=== PATIENT | female | born 1975 | race African-American/Black ===

== ENCOUNTER 2017-02-24 07:50 | Inpatient (IN) | payer BC ==
[2017-02-24] MEDS: ELECTROLYTE-148 SOLN 1,000 ML IV SCH ×3 (08:40→23:00)
[2017-02-24 09:06] LABS: BASOPHIL 0.8 % (0-2.0); EOSINOPHIL 4.5 % (0-4.5); MCH 29.9 pg (25.7-33.7); MCHC 33.8 g/dl (32.0-36.0); MEAN CELL VOLUME 88.5 fl (80-96); MEAN PLT VOLUME 8.4 fl (7.5-11.1); NEUTROPHILS 64.8 % (42.8-82.8); PLATELET COUNT 199 K/MM3 (134-434); RDW 14.9 % (11.6-15.6); WHITE BLOOD COUNT 4.6 K/mm3 (4.0-10.0)
[2017-02-24 09:26] VITALS: BMI 38.4
[2017-02-24 09:26] LABS: INR 1.01 (0.82-1.09); PROTHROMBIN TIME (PATIENT) 11.4 SEC (9.98-11.88)
[2017-02-24 09:29] LABS: ACTIVATED PTT 27.5 SECONDS (26.9-34.4)
[2017-02-24 09:31] LABS: ANION GAP 10 (8-16); CALCIUM 7.8 mg/dL (8.5-10.1); CO2 23 mmol/L (21-32); CREATININE 0.6 mg/dL (0.55-1.02); GLUCOSE,RANDOM 137 mg/dL (74-106)
[2017-02-24] MEDS ORDERED: DINOPROSTONE 10 MG VAGINAL SUPPOSITORY VG ONE ×2 (09:43→21:18)
--- NOTE | 2017-02-24 09:49 | HP ---
Past Medical History - Admission Chief Complaint: Pt here for labor induction. History of Present Illness: 41 y/o with SIUP at 38 weeks here for IOL 2/2 uncontrolled A2 gestational DM. Pt monitored by MFM throughout the and despite oral hypoglycemic agents and insulin therapy has uncontrolled blood glucose levels. Pt also obese and AMA. 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 GBS negative, HIV negative. History Source: Patient, Medical Record Limitations to Obtaining History: No Limitations - Past Medical History Cardiovascular: No: HTN Pulmonary: No: Asthma Gastrointestinal: No: GERD Renal/: No: UTI Reproductive: Yes: Fibroids ...: 3 ...Para: 1 ...Term: 1 ...: 0 ...Spon : 0 ...Induced : 1 ...Multiple Gestation: 0 ...LMP: 06/03/16 ... Weeks Gestation by Dates: 38.0 ...EDC by Dates: 03/10/17 ...EDC by Sono: 03/10/17 Infectious Disease: Yes: Other (HSV 2) Psych: No: Anxiety, Bipolar, Depression Endocrine: Yes: Diabetes Mellitus (gestational) - Past Surgical History Hx Myomectomy: No Hx Transabdominal Cerclage: No Additional Surgical History: Breast reduction, kidney stone "removal" 2014 - Smoking History Smoking history: Never smoked Have you smoked in the past 12 months: No Aproximately how many cigarettes per day: 0 - Alcohol/Substance Use Hx Alcohol Use: No History of Substance Use: reports: None - Social History History of Recent Travel: No Home Medications - Allergies Allergies/Adverse Reactions: Allergies Allergy/AdvReac Type Severity Reaction Status Date / Time No Known Drug Allergies Allergy Verified 02/24/17 09:27 No Known Drug Intolerances Allergy Verified 08/09/15 20:39 - Home Medications Home Medications: Ambulatory Orders Vit/Iron Fumarate/FA [ Tablet] 1 tab PO DAILY 10/29/16 Humulin N 44 unit SQ BID 02/09/17 Humulin R U-500 Kwikpen 20 units SQ BID 02/09/17 Acyclovir [Zovirax -] 400 mg PO BID 02/24/17 Review of Systems - Review of Systems Constitutional: reports: No Symptoms Eyes: reports: No Symptoms HENT: reports: No Symptoms Neck: reports: No Symptoms Cardiovascular: reports: No Symptoms Respiratory: reports: No Symptoms Gastrointestinal: reports: No Symptoms Genitourinary: reports: No Symptoms Breasts: reports: No Symptoms Reported Musculoskeletal: reports: No Symptoms Integumentary: reports: No Symptoms Neurological: reports: No Symptoms Endocrine: reports: No Symptoms Hematology/Lymphatic: reports: No Symptoms Psychiatric: reports: No Symptoms Physical Exam - Maternity Vital Signs: Vital Signs Temperature 98.7 F 02/24/17 09:15 Pulse Rate 106 H 02/24/17 09:15 Respiratory Rate 20 02/24/17 09:15 Blood Pressure 124/85 02/24/17 09:15 O2 Sat by Pulse Oximetry (%) Constitutional: Yes: Well Nourished, No Distress, Calm Eyes: Yes: Conjunctiva Clear, EOM Intact HENT: Yes: Atraumatic, Normocephalic Neck: Yes: Supple, Trachea Midline Cardiovascular: Yes: Regular Rate and Rhythm Lungs: Clear to auscultation - Abdominal Exam/OB Number of Fetuses: Single Presentation: Vertex Contractions: No Heart Rate (range): 150 Category: I Accelerations: Uniform Decelerations: None (one variable deceleration noted earlier *approx 830 am - spontaneously resolved, none since) - Vaginal Exam/OB Dilatation (cm): 1 Effacement (%): 50 Amniotic Membrane Status: Intact Presentation: Vertex/Position Station: -3 - Physical Exam Psychiatric: Yes: Alert, Oriented - Labs Lab Results: CBC, BMP 02/24/17 08:35 02/24/17 08:35 Hemorrhage Risk Assessment - Risk Factors Medium Risk Factors: Yes: None High Risk Factors: Yes: None Risk Score: 1 Risk Level: Medium Risk Problem List - Problems (1) White classification A2 gestational diabetes mellitus (GDM), insulin controlled Code(s): O24.414 - GESTATIONAL DIABETES IN , INSULIN CONTROLLED (2) Elderly multigravida, currently in third trimester Code(s): O09.523 - SUPERVISION OF ELDERLY MULTIGRAVIDA, THIRD TRIMESTER Assessment/Plan 41 y/o with SIUP at 38 weeks, IOL for uncontrolled GDMA2 - insulin dependent - FHTS cat 1 - IOL, for cervidil placement at this time - A2GDM - will monitor Blood Glucose every 4 hours while not in active labor and control with insulin as needed, will check BG every 1-2 hours while in labor and control with insulin/Dextrose as needed. - GBS negative
[2017-02-24] MEDS ORDERED: PROMETHAZINE HCL 25 MG/1 ML VIAL IVPUSH ONE (11:30)
[2017-02-24] MEDS ORDERED: BUTORPHANOL TARTRATE 1 MG/ML VIAL IVPB ONE (11:30)
[2017-02-24] MEDS ORDERED: TUBERCULIN PPD 5 TU/0.1ML SYRINGE (IN PATIENT USE ONLY) ID ONE (12:00)
--- NOTE | 2017-02-24 21:17 | PN ---
Ante-Partal Exam - Subjective Subjective: Pt with occasional contractions (Q12-14 mins) but states pain is worsening. Vital Signs: Vital Signs Temperature 97.7 F 02/24/17 18:00 Pulse Rate 88 02/24/17 20:00 Respiratory Rate 20 02/24/17 20:00 Blood Pressure 126/73 02/24/17 20:00 O2 Sat by Pulse Oximetry (%) Bleeding: No Headache: No Visual changes: No Right upper quadrant pain: No - Contractions Contractions: Yes Regularity: Irregular Intensity: Mild/Mod Monitor Mode: External - Exam during Labor Heart Rate: 150 Variability: Moderate Category: I Monitor Accelerations: Present Monitor Decelerations: None Exam: Vaginal Dilatation (cm): 1 Effacement (%): 50 Presentation: Vertex Station: -4 - Intrapartum Hemorrhage Risk Medium Risk Factors: None High Risk Factors: None Risk Score: 0 Risk Level: Low Risk - Assessment/Plan Assessment/Plan: 41 y/o P1 with SIUP at 38 weeks, IOL for uncontrolled GDMA2 - AFVSS - FHTS cat 1 - IOL, cervidil removed, cervix not ripe, for 2nd cervidil placement in 30 minutes - A2GDM - continue BGMs every 4 hours until active labor then will increase frequency - continue current care
[2017-02-25] MEDS: ELECTROLYTE-148 SOLN 1,000 ML IV SCH ×3 (06:00→18:30)
[2017-02-25] MEDS ORDERED: OXYTOCIN 15 UNITS/ LR 250 ML 250 ML IVPB SCH (09:00)
--- NOTE | 2017-02-25 09:17 | PN ---
Ante-Partal Exam - Subjective Subjective: Pt with some discomfort with contractions overnight, received stadol/phenergan X 1 dose. Cervidil removed this a.m. Vital Signs: Vital Signs Temperature 98.1 F 02/25/17 08:00 Pulse Rate 85 02/25/17 08:00 Respiratory Rate 18 02/25/17 08:00 Blood Pressure 106/70 02/25/17 08:00 O2 Sat by Pulse Oximetry (%) Bleeding: No Headache: No Visual changes: No Right upper quadrant pain: No - Contractions Contractions: Yes Regularity: Irregular Intensity: Mild/Mod Monitor Mode: External - Exam during Labor Heart Rate: 150 Variability: Moderate Category: I Monitor Accelerations: Present Monitor Decelerations: None Exam: Vaginal Dilatation (cm): 2 Effacement (%): 50 Amniotic Membrane Status: Intact Presentation: Vertex Station: -3 (exam per nursing staff) - Assessment/Plan Assessment/Plan: cervidil removed to start pitocin continue BG monitoring as ordered until active labor, then may increase monitoring once in active labor
--- NOTE | 2017-02-25 18:30 | PN ---
Ante-Partal Exam - Subjective Subjective: pt doing well on Pitocin Vital Signs: Vital Signs Temperature 98.2 F 02/25/17 18:00 Pulse Rate 80 02/25/17 18:00 Respiratory Rate 18 02/25/17 18:00 Blood Pressure 122/75 02/25/17 18:00 O2 Sat by Pulse Oximetry (%) Bleeding: No Headache: No Visual changes: No Right upper quadrant pain: No - Contractions Contractions: Yes Regularity: Regular - Exam during Labor Heart Rate: 145 Category: I Monitor Accelerations: Present Monitor Decelerations: None Exam: Vaginal Dilatation (cm): 2 Effacement (%): 50 Amniotic Membrane Status: Intact Meconium Staining: Light - Intrapartum Hemorrhage Risk Risk Score: 0 Risk Level: Low Risk - Assessment/Plan Assessment/Plan: gestational Diabetes on iup at 38 week Induction fibroids obesity AMA hx cervidil x 2 Cat 1 No progress Plan Continue pitocin willl do CS in am if no progress Sparkle
--- NOTE | 2017-02-25 22:06 | PN ---
Ante-Partal Exam - Subjective Subjective: Pt desires to stop Pitoicin Pt with no progress after 2 days Vital Signs: Vital Signs Temperature 98.2 F 02/25/17 18:00 Pulse Rate 89 02/25/17 20:00 Respiratory Rate 18 02/25/17 20:00 Blood Pressure 132/70 02/25/17 20:00 O2 Sat by Pulse Oximetry (%) Bleeding: No Headache: No Visual changes: No Right upper quadrant pain: No - Contractions Contractions: Yes Regularity: Regular Intensity: Mild/Mod Monitor Mode: External - Exam during Labor Heart Rate: 145 Variability: Moderate Category: I Monitor Accelerations: Present Monitor Decelerations: None Exam: Vaginal Dilatation (cm): 2 Effacement (%): 50 Amniotic Membrane Status: Intact Presentation: Vertex Station: -2 - Intrapartum Hemorrhage Risk Risk Score: 0 Risk Level: Low Risk - Assessment/Plan Assessment/Plan: Failure to progress Refusal to contnue pitocin desires CS in AM Pt ate will do CS at 5 am gestational diabetes on insulin at 38 week Echogenic focus of heart AMA Fibroids Obesity Plan Primary CS after 6 hours eating Notify Gennaro & anesthesia Villagran
[2017-02-25] MEDS ORDERED: CITRIC ACID/SODIUM CITRATE 30 ML UNIT-DOSE CUP PO ONE (22:10)
[2017-02-26] MEDS ORDERED: ELECTROLYTE-148 SOLN 1,000 ML IV ONE (04:00)
[2017-02-26] MEDS ORDERED: ONDANSETRON 4 MG/2 ML VIAL IVPUSH PRN (05:47)
[2017-02-26 06:18] LABS: VENOUS BLOOD GAS HCO3 22.2 meq/L (19-25)
[2017-02-26 06:19] LABS: VENOUS PH 7.29 (7.32-7.42)
[2017-02-26] MEDS ORDERED: METHYLERGONOVINE MALEATE 0.2 MG/1 ML AMP IM PRN (06:40)
[2017-02-26] MEDS ORDERED: IBUPROFEN 600 MG TABLET (FP) PO PRN (06:40)
--- NOTE | 2017-02-26 06:44 | OP ---
Operative Note - Note: Operative Date: 02/26/17 Pre-Operative Diagnosis: Failure to Progress. obesity. 38 week. gestational Dm on insulin Operation: Primary Section. Bilateral salpingectomy Findings: Live female infant Nuchal caord x 1 Post-Operative Diagnosis: Same as Pre-op Surgeon: Vivi Marti Operating Room Rn: Alf Mena Anesthesia: Spinal Estimated Blood Loss (mls): 600 Operative Report Dictated: Yes
[2017-02-26] MEDS ORDERED: OXYTOCIN 20 UNITS in 0.9% NS 1,000 ML IV SCH (06:45)
--- NOTE | 2017-02-26 07:06 | OP ---
DATE OF OPERATION: 02/26/2017 PREOPERATIVE DIAGNOSIS: 1. Failure to progress, gestational diabetes on insuling, 38 weeks. 2. Voluntary sterilization. 3. Obesity 4. AMA POSTOPERATIVE DIAGNOSIS: Live female . Normal tubes and ovaries. Nuchal cord x1. OPERATION: Primary section and bilateral salpingectomy. SURGEON: Vivi Marti MD JAVA SQL DEVELOPER: DAINA Acevedo ( unavailable) ANESTHESIA: Spinal. ANESTHESIOLOGIST: Rico Elkins M.D. DESCRIPTION OF PROCEDURE: The patient was taken to the operating room, placed in the supine position, prepped and draped in the usual sterile fashion. A scalpel was then used to make a Pfannenstiel skin incision. Cautery was then used to go through the layers of the abdominal wall to the level of the fascia. The fascia was cut in the midline and cautery was then used to open the fascia in a smiling fashion. Conrad was then used to bluntly and sharply dissect the rectus muscle and fascia. The muscle was splint in the midline. The peritoneal cavity was then entered and carried upward and downward. A bladder retractor was then placed. The vesicouterine reflection was then entered. The bladder was bluntly dissected out of the operative field. A scalpel was then used to make a low transverse uterine incision. The incision was carried upward using bandage scissors. A live female was delivered in OT position. Nuchal cord x1 was reduced. The shoulders were delivered without difficulty. The cord was clamped and cut. The infant was handed to the multicultural services librarian. The placenta was manually extracted from the uterus. The uterus was exteriorized and cleaned with clean lap pads. The uterine incision was then closed using 0 Biosyn suture, the first layer continuous interlocking and the second layer imbricating the first layer. The tubes were noted to be normal. LigaSure was then used to do bilateral salpingectomy using cautery and cutting. The tubes were submitted to Pathology. The uterus was interiorized. The abdominal cavity was cleaned with lap pads. The tubes were checked for hemostasis. The peritoneum was closed using 0 Biosyn suture. The fascia was then closed using 0 Vicryl suture in 2 parts, continuous. The subcutaneous was closed using 0 Biosyn suture and tthe skin was then closed using 3-0 Vicryl. Hemostasis was achieved. The patient tolerated the procedure well. Estimated blood loss was 600 mL. Micky [id number] MTDD
[2017-02-26] MEDS ORDERED: IBUPROFEN 800 MG/8 ML IJ IVPB ONE ×2 (09:45→10:15)
[2017-02-26] MEDS: PRENATAL VITAMINS W/ FOLIC ACID TABLET (FP) PO SCH (10:00)
[2017-02-26] MEDS: ELECTROLYTE-148 SOLN 1,000 ML IV SCH (15:29)
[2017-02-26] MEDS: oxyCODONE HCL 5 MG TABLET PO PRN (22:41)
[2017-02-26] MEDS: SIMETHICONE 80 MG TAB.CHEW (FP) PO PRN (22:41)
[2017-02-26] MEDS: ACETAMINOPHEN 325 MG TABLET (FP) PO PRN (22:42)
[2017-02-26] MEDS: IBUPROFEN 600 MG TABLET (FP) PO PRN (22:44)
[2017-02-27] MEDS: oxyCODONE HCL 5 MG TABLET PO PRN ×3 (05:48→20:44)
[2017-02-27] MEDS: SIMETHICONE 80 MG TAB.CHEW (FP) PO PRN ×3 (05:48→20:43)
[2017-02-27] MEDS: IBUPROFEN 600 MG TABLET (FP) PO PRN ×2 (05:49→12:44)
[2017-02-27] MEDS: ACETAMINOPHEN 325 MG TABLET (FP) PO PRN ×2 (05:49→20:43)
[2017-02-27] MEDS ORDERED: BISACODYL 10 MG SUPP.RECT RC PRN (06:40)
[2017-02-27 07:46] LABS: BASOPHIL 0.7 % (0-2.0); EOSINOPHIL 3.4 % (0-4.5); MCH 31.1 pg (25.7-33.7); MCHC 34.9 g/dl (32.0-36.0); MEAN PLT VOLUME 8.7 fl (7.5-11.1); PLATELET COUNT 200 K/MM3 (134-434); RDW 14.9 % (11.6-15.6); WHITE BLOOD COUNT 8.6 K/mm3 (4.0-10.0)
--- NOTE | 2017-02-27 08:34 | PN ---
Post Progress Note - Subjective Subjective: POD 1 Pt complaining of gas pain, medication given with good results Type of Delivery: Primary C/S Vital Signs: Vital Signs Temperature 98.1 F 02/27/17 05:58 Pulse Rate 86 02/27/17 05:58 Respiratory Rate 18 02/27/17 06:00 Blood Pressure 113/68 02/27/17 05:58 O2 Sat by Pulse Oximetry (%) 99 02/26/17 08:55 Breast Exam: Yes: Soft Uterus: Yes: Fundus Firm Incision: Yes: Dressing dry and intact Abdomen/GI: Yes: Abdomen soft Lochia: Yes: Rubra Lochia, amount: Moderate Extremities: Yes: Calves non-tender Perineum: Yes: Intact Activity: Ambulating - Labs Labs: CBC WBC 8.6 K/mm3 (4.0-10.0) D 02/27/17 07:13 RBC 3.89 M/mm3 (3.60-5.2) 02/27/17 07:13 Hgb 12.1 GM/dL (10.7-15.3) 02/27/17 07:13 Hct 34.6 % (32.4-45.2) 02/27/17 07:13 MCV 89.0 fl (80-96) 02/27/17 07:13 MCH 31.1 pg (25.7-33.7) 02/27/17 07:13 MCHC 34.9 g/dl (32.0-36.0) 02/27/17 07:13 RDW 14.9 % (11.6-15.6) 02/27/17 07:13 Plt Count 200 K/MM3 (134-434) 02/27/17 07:13 MPV 8.7 fl (7.5-11.1) 02/27/17 07:13 Neutrophils % 71.0 % (42.8-82.8) 02/27/17 07:13 Lymphocytes % 16.4 % (8-40) D 02/27/17 07:13 Monocytes % 8.5 % (3.8-10.2) 02/27/17 07:13 Eosinophils % 3.4 % (0-4.5) 02/27/17 07:13 Basophils % 0.7 % (0-2.0) 02/27/17 07:13
[2017-02-27] MEDS: PRENATAL VITAMINS W/ FOLIC ACID TABLET (FP) PO SCH (09:00)
[2017-02-27] MEDS ORDERED: FLU VACC QS2017-18 36MOS UP/PF 60 MCG/0.5 ML SYRINGE IM ONE (10:00)
--- NOTE | 2017-02-27 11:47 | PROC ---
Procedure Note Procedure: Anesthesia post op note POD#1. S/P primary under spinal with duramorph. Pat seen and examined. VSS. No apparent post anesthesia complications. Signed off.
[2017-02-28] MEDS: SIMETHICONE 80 MG TAB.CHEW (FP) PO PRN ×4 (08:00→20:50)
[2017-02-28] MEDS: oxyCODONE HCL 5 MG TABLET PO PRN ×4 (08:01→20:51)
[2017-02-28] MEDS: ACETAMINOPHEN 325 MG TABLET (FP) PO PRN ×4 (08:04→20:50)
[2017-02-28] MEDS: PRENATAL VITAMINS W/ FOLIC ACID TABLET (FP) PO SCH (10:13)
--- NOTE | 2017-02-28 11:21 | PN ---
Progress Note (SOAP) - Subjective Chief Complaint: Pt doing well - Current Medications Current Medications: Active Medications Acetaminophen (Tylenol -) 650 mg PO Q4H PRN PRN Reason: FEVER OR PAIN Last Admin: 02/28/17 08:04 Dose: 650 mg Bisacodyl (Dulcolax Suppository -) 10 mg RC PRN PRN PRN Reason: CONSTIPATION Diphenhydramine HCl (Benadryl Injection -) 25 mg IVPUSH Q4H PRN PRN Reason: Pruritis Ibuprofen (Motrin -) 600 mg PO Q4H PRN PRN Reason: PAIN Last Admin: 02/27/17 12:44 Dose: 600 mg Methylergonovine Maleate (Methergine Injection -) 0.2 mg IM Q4H PRN PRN Reason: Excessive Bleeding (L&D) Oxycodone HCl (Roxicodone -) 5 mg PO Q4H PRN PRN Reason: PAIN LEVEL 1-5 Last Admin: 02/27/17 05:48 Dose: 5 mg Oxycodone HCl (Roxicodone -) 10 mg PO Q4H PRN PRN Reason: PAIN LEVEL 6-10 Last Admin: 02/28/17 08:01 Dose: 10 mg Multivit/Folic Acid/Iron ( Vitamins (Sjr) -) 1 tab PO DAILY LUCIANA Last Admin: 02/28/17 10:13 Dose: 1 tab Simethicone (Mylicon -) 80 mg PO Q4H PRN PRN Reason: GAS Last Admin: 02/28/17 08:00 Dose: 80 mg - Objective Vital Signs: Vital Signs Temperature 99.0 F 02/27/17 20:56 Pulse Rate 105 H 02/27/17 20:56 Respiratory Rate 20 02/27/17 20:56 Blood Pressure 124/82 02/27/17 20:56 O2 Sat by Pulse Oximetry (%) 99 02/26/17 08:55 Constitutional: Yes: Well Nourished, No Distress Cardiovascular: Yes: WNL Respiratory: Yes: WNL Breast(s): Yes: WNL Musculoskeletal: Yes: WNL Extremities: Yes: WNL Wound/Incision: Yes: Clean/Dry, Well Approximated, Steri Strips, Open to air Neurological: Yes: WNL, Alert, Oriented Labs Lab Results: CBC, BMP 02/27/17 07:13 02/24/17 08:35 Assessment/Plan SP CS POD2 stable plan continue present management
[2017-03-01] MEDS: ACETAMINOPHEN 325 MG TABLET (FP) PO PRN ×2 (05:42→22:21)
[2017-03-01] MEDS: SIMETHICONE 80 MG TAB.CHEW (FP) PO PRN ×2 (05:42→22:21)
[2017-03-01] MEDS: oxyCODONE HCL 5 MG TABLET PO PRN ×2 (05:43→22:21)
[2017-03-01 06:53] LABS: BASOPHIL 0.5 % (0-2.0); EOSINOPHIL 4.7 % (0-4.5); MCH 30.8 pg (25.7-33.7); MCHC 34.4 g/dl (32.0-36.0); MEAN CELL VOLUME 89.7 fl (80-96); MEAN PLT VOLUME 8.4 fl (7.5-11.1); NEUTROPHILS 69.2 % (42.8-82.8); PLATELET COUNT 213 K/MM3 (134-434); RDW 14.9 % (11.6-15.6); WHITE BLOOD COUNT 6.4 K/mm3 (4.0-10.0)
[2017-03-01] MEDS: PRENATAL VITAMINS W/ FOLIC ACID TABLET (FP) PO SCH (09:38)
--- NOTE | 2017-03-01 11:26 | PN ---
Progress Note (SOAP) - Subjective Chief Complaint: Pt doing well - Current Medications Current Medications: Active Medications Acetaminophen (Tylenol -) 650 mg PO Q4H PRN PRN Reason: FEVER OR PAIN Last Admin: 03/01/17 05:42 Dose: 650 mg Bisacodyl (Dulcolax Suppository -) 10 mg RC PRN PRN PRN Reason: CONSTIPATION Diphenhydramine HCl (Benadryl Injection -) 25 mg IVPUSH Q4H PRN PRN Reason: Pruritis Ibuprofen (Motrin -) 600 mg PO Q4H PRN PRN Reason: PAIN Last Admin: 02/27/17 12:44 Dose: 600 mg Methylergonovine Maleate (Methergine Injection -) 0.2 mg IM Q4H PRN PRN Reason: Excessive Bleeding (L&D) Oxycodone HCl (Roxicodone -) 5 mg PO Q4H PRN PRN Reason: PAIN LEVEL 1-5 Last Admin: 02/27/17 05:48 Dose: 5 mg Oxycodone HCl (Roxicodone -) 10 mg PO Q4H PRN PRN Reason: PAIN LEVEL 6-10 Last Admin: 03/01/17 05:43 Dose: 10 mg Multivit/Folic Acid/Iron ( Vitamins (Sjr) -) 1 tab PO DAILY LUCIANA Last Admin: 03/01/17 09:38 Dose: 1 tab Simethicone (Mylicon -) 80 mg PO Q4H PRN PRN Reason: GAS Last Admin: 03/01/17 05:42 Dose: 80 mg - Objective Vital Signs: Vital Signs Temperature 98.2 F 03/01/17 09:19 Pulse Rate 95 H 03/01/17 09:19 Respiratory Rate 20 03/01/17 09:19 Blood Pressure 138/66 03/01/17 09:19 O2 Sat by Pulse Oximetry (%) 99 02/26/17 08:55 Constitutional: Yes: Well Nourished, No Distress Neck: Yes: WNL Cardiovascular: Yes: WNL Respiratory: Yes: WNL ....Post : Yes: Uterus firm, Uterus non-tender Breast(s): Yes: WNL Musculoskeletal: Yes: WNL Extremities: Yes: WNL Edema: No Wound/Incision: Yes: Clean/Dry, Well Approximated, Steri Strips, Open to air Neurological: Yes: WNL, Alert, Oriented Labs Lab Results: CBC, BMP 03/01/17 06:20 02/24/17 08:35 Problem List - Problems (1) delivery delivered Code(s): O82 - ENCOUNTER FOR DELIVERY WITHOUT INDICATION Assessment/Plan SP CS POD3 stable plan continue present management DC home
--- NOTE | 2017-03-01 18:47 | PATH ---
Surgical Pathology Report Patient Name: JAVIER DELGADO [facility]. Rec. 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 Specimen(s) Received A: PLACENTA B: PORTION OF RIGHT FALLOPIAN TUBE C: PORTION OF LEFT FALLOPIAN TUBE Clinical History 38.2 weeks' gestation. IDDM. History of kidney stones, breast reduction, fibroids, hyperthyroidism, obesity Final Diagnosis A. PLACENTA, SECTION: 463 g THIRD TRIMESTER PLACENTA WITH TRIVASCULAR UMBILICAL CORD AND UNREMARKABLE PLACENTAL MEMBRANES. B. FALLOPIAN TUBE, RIGHT, SALPINGECTOMY: FALLOPIAN TUBE (INCLUDING FULL LUMINAL PORTION) WITH MILD HYDROSALPINX AND PARATUBAL CYST. C. FALLOPIAN TUBE, SALPINGECTOMY: FALLOPIAN TUBE (INCLUDING FULL LUMINAL PORTION) WITH MILD HYDROSALPINX. Electronically Signed Destinee Colmenares M.D. Gross Description A. The specimen is received fresh labeled placenta and is a 463 gram, 17 x 16 x 2.2 cm. placenta with attached membranes and umbilical cord. The attached membranes are glistening and translucent and insert marginally. The umbilical cord measures 36 cm. in length and averages 0.6 cm. in diameter. The cord inserts eccentrically, 5 cm. to the nearest margin. No true knots or strictures are identified. Cut surface of the umbilical cord reveals 3 vessels. The surface is glynn-blue with minimal fibrin deposition and appropriate caliber vessels. The maternal surface is lobulated and appears complete with no adherent blood clots or areas of thinning. Sectioning reveals red-brown, spongy parenchyma. No lesions are identified. Congressional Representative sections are submitted in three cassettes as follows: 1- membrane rolls and umbilical cord; 2-3- full thickness sections of placenta. B. Received fresh labelled "right fallopian tube" is a 9.3 cm long by 0.5 cm in diameter portion of tissue consistent with a portion of fallopian tube. The fimbriated end is present, and there is a 1.0 cm in greatest dimension clear fluid filled cysts and the fimbriated end. No additional focal lesions are identified. Congressional Representative sections are submitted in one cassette. C. Received fresh labelled "left fallopian tube" is a 9.3 cm long by 0.5 cm in diameter portion of tissue consistent with a portion of fallopian tube. The fimbriated end is present. No focal lesions are identified. Congressional Representative sections are submitted in one cassette. [facility]/02/26/2017 [facility]/02/26/2017
[2017-03-02] MEDS: SIMETHICONE 80 MG TAB.CHEW (FP) PO PRN (06:26)
[2017-03-02] MEDS: oxyCODONE HCL 5 MG TABLET PO PRN (06:26)
[2017-03-02] MEDS: ACETAMINOPHEN 325 MG TABLET (FP) PO PRN (06:26)
[2017-03-02 08:21] VITALS: BP 132/69; PULSE 100; TEMP 99
[2017-03-02] MEDS: PRENATAL VITAMINS W/ FOLIC ACID TABLET (FP) PO SCH (09:29)
== END 2017-03-02 12:00 | disposition home or self-care (01) | DRG 766 ==
LOC: JLDR 07:50 → J3W 02-26 09:10
PROVIDERS: ADMIT Obstetrics & Gynecology; ATTEND Obstetrics & Gynecology
PROC: 10D00Z1 Extraction of Products of Conception, Low, Open Approach (ICD-10-PCS; principal; 2017-02-24)
PROC: 0UT70ZZ Resection of Bilateral Fallopian Tubes, Open Approach (ICD-10-PCS; 2017-02-24)
PROC: 3E0P7VZ Introduction of Hormone into Female Reproductive, Via Natural or Artificial Opening (ICD-10-PCS; 2017-02-24)
DX: O24.424 Gestational diabetes mellitus in childbirth, insulin controlled (principal); O99.214 Obesity complicating childbirth; E66.8 Other obesity; Z68.38 Body mass index [BMI] 38.0-38.9, adult; O34.13 Maternal care for benign tumor of corpus uteri, third trimester; O69.81X0 Labor and delivery complicated by cord around neck, without compression, not applicable or unspecified; O62.0 Primary inadequate contractions; Z3A.38 38 weeks gestation of pregnancy; Z37.0 Single live birth; Z30.2 Encounter for sterilization
CPT/HCPCS: 36415; 80048; 82803; 85025; 85610; 85730; 86593; 86850; 86900; 86901; 88302-TC; 88307-TC

== ENCOUNTER 2020-05-04 06:32 | Emergency (ER) | payer BC ==
[2020-05-04 07:27] VITALS: TEMP 98.2; BMI 32.4
[2020-05-04] MEDS ORDERED: ACETAMINOPHEN 1000 MG/100 ML BAG IVPB ONE (08:44)
[2020-05-04] MEDS ORDERED: FAMOTIDINE 20 MG/50 ML IVPB 20 MG/50 ML MG IVPB ONE ×2 (08:44→08:56)
[2020-05-04] MEDS ORDERED: MAG HYDROX/AL HYDROX/SIMETH -MYLANTA- ORAL SUSPENSION PO ONE (08:44)
[2020-05-04 08:46] LABS: BASO % 0.7 % (0-2.0); EOS % 5.8 % (0-4.5); HEMATOCRIT 41.9 % (32.4-45.2); HEMOGLOBIN 14.4 GM/dL (10.7-15.3); LYMPH % 31.5 % (8-40); MCH 30.7 pg (25.7-33.7); MCHC 34.3 g/dl (32.0-36.0); MEAN CELL VOLUME 89.5 fl (80-96); MEAN PLT VOLUME 8.3 fl (7.5-11.1); MONO % 7.7 % (3.8-10.2); NEUT % 54.3 % (42.8-82.8); PLATELET COUNT 256 K/MM3 (134-434); RBC 4.69 M/mm3 (3.60-5.2); RDW 12.7 % (11.6-15.6); WHITE BLOOD COUNT 4.5 K/mm3 (4.0-10.0)
[2020-05-04] MEDS ORDERED: SUCRALFATE 1 GM TABLET (FP) ONE (08:56)
[2020-05-04] MEDS ORDERED: ACETAMINOPHEN INJECTION 100 ML IVPB ONE (08:56)
[2020-05-04] MEDS ORDERED: MAG HYDROX/AL HYDROX/SIMETH 30 ML UNIT-DOSE CUP ONE (08:56)
[2020-05-04 09:05] LABS: CHLORIDE 109 mmol/L (98-107); SODIUM 142 mmol/L (136-145)
[2020-05-04 09:09] LABS: ANION GAP 6 MMOL/L (8-16); BLOOD UREA NITROGEN 11.3 mg/dL (7-18); CALCIUM 8.9 mg/dL (8.5-10.1); CO2 27 mmol/L (21-32); GLUCOSE,RANDOM 102 mg/dL (74-106); LIPASE 70 U/L (73-393)
[2020-05-04 09:10] LABS: SGPT/ALT 7 U/L (13-61)
[2020-05-04 09:11] LABS: CREATININE 0.9 mg/dL (0.55-1.3); SGOT/AST 10 U/L (15-37)
[2020-05-04 09:12] LABS: BILIRUBIN,TOTAL 0.6 mg/dL (0.2-1); TOT PROT 7.6 g/dl (6.4-8.2)
[2020-05-04 09:13] LABS: ALK PHOS 60 U/L (45-117)
[2020-05-04] MEDS ORDERED: SUCRALFATE 1 GM/10 ML UNIT DOSE CUPS PO SCH (10:00)
[2020-05-04 10:43] LABS: PH,URINE 5.5 (5.0-8.0); URINE APPEARANCE CLEAR; URINE BILIRUBIN NEGATIVE (NEGATIVE); URINE COLOR YELLOW; URINE GLUCOSE (UA) NEGATIVE (NEGATIVE); URINE KETONE TRACE (NEGATIVE); URINE LEUK ESTERASE NEGATIVE (NEGATIVE); URINE NITRITE NEGATIVE (NEGATIVE); URINE PROTEIN NEGATIVE (NEGATIVE); URINE UROBILINOGEN 0.2 mg/dL (0.2-1.0)
[2020-05-04 10:46] LABS: HCG,QUALITATIVE URINE Negative
[2020-05-04 11:41] VITALS: BP 122/78; PULSE 72
== END 2020-05-04 11:41 | disposition home or self-care (01) ==
LOC: JER 06:32
PROC: 3E033NZ Introduction of Analgesics, Hypnotics, Sedatives into Peripheral Vein, Percutaneous Approach (ICD-10-PCS; principal; 2020-05-04)
PROC: 3E033GC Introduction of Other Therapeutic Substance into Peripheral Vein, Percutaneous Approach (ICD-10-PCS; 2020-05-04)
DX: K80.51 Calculus of bile duct without cholangitis or cholecystitis with obstruction (principal)
CPT/HCPCS: 36415; 71046-TC-FY; 76705-TC; 80053; 81003; 82550; 83690; 84484; 84703; 85025; 93005; 93010; 99285-25; J0131

== ENCOUNTER 2020-05-10 04:52 | Day surgery (SDC) | payer BC ==
[2020-05-08 16:36] VITALS: BMI 32.8
[2020-05-10] MEDS ORDERED: fentaNYL CITRATE 250 MCG/5 ML VIAL ONE (10:20)
[2020-05-10] MEDS ORDERED: SUCCINYLCHOLINE CHLORIDE 200 MG/10 ML SYRINGE ONE (10:20)
[2020-05-10] MEDS ORDERED: MIDAZOLAM HCL 2 MG/2 ML SINGLE DOSE VIAL ONE (10:20)
[2020-05-10] MEDS ORDERED: ROCURONIUM BROMIDE 50 MG/5 ML SYRINGE ONE (10:20)
[2020-05-10] MEDS ORDERED: PROPOFOL 20 ML ONE (10:20)
[2020-05-10] MEDS ORDERED: ceFAZolin SODIUM 1 GM VIAL ONE (10:21)
[2020-05-10] MEDS ORDERED: KETOROLAC TROMETHAMINE 30 MG/1 ML VIAL ONE (10:21)
[2020-05-10] MEDS ORDERED: LIDOCAINE HCL/PF 2% SDV 5ML VIAL ONE (10:21)
[2020-05-10] MEDS ORDERED: DEXAMETHASONE SOD PHOSPHATE 4 MG/1 ML VIAL ONE (10:21)
[2020-05-10] MEDS ORDERED: DESFLURANE GAS 240 ML BOTTLE IH ONE (10:23)
[2020-05-10] MEDS ORDERED: ceFAZolin 2 GRAM PREMIX BAG IVPB ONE (11:50)
[2020-05-10] MEDS ORDERED: ONDANSETRON 4 MG/2 ML VIAL IVPUSH PRN (14:43)
[2020-05-10] MEDS ORDERED: oxyCODONE HCL 5 MG TABLET PO PRN (14:43)
[2020-05-10] MEDS ORDERED: LACTATED RINGERS SOLUTION 1,000 ML IV SCH (14:45)
[2020-05-10] MEDS ORDERED: ONDANSETRON 4 MG/2 ML VIAL ONE (16:42)
[2020-05-10] MEDS ORDERED: oxyCODONE HCL 5 MG TABLET ONE (17:41)
[2020-05-10 18:08] VITALS: BP 116/72; PULSE 72; TEMP 97.5
== END 2020-05-10 18:24 | disposition home or self-care (01) ==
LOC: JASU-SURG 04:52
PROVIDERS: ATTEND Surgery
PROC: 0FT44ZZ Resection of Gallbladder, Percutaneous Endoscopic Approach (ICD-10-PCS; principal; 2020-05-10 12:00)
DX: K80.10 Calculus of gallbladder with chronic cholecystitis without obstruction (principal)
CPT/HCPCS: 82962; 84703; 88304-TC; 94760

== ENCOUNTER 2021-08-25 04:03 | Emergency (ER) | payer BC ==
[2021-08-25 04:30] VITALS: BMI 32.5
[2021-08-25] MEDS ORDERED: IBUPROFEN 600 MG TABLET (FP) PO ONE ×2 (04:36→04:42)
[2021-08-25] MEDS ORDERED: SODIUM CHLORIDE 0.9% 500 ML INFUS.BAG IV ONE (04:39)
[2021-08-25 05:27] LABS: BASO % 0.5 % (0-2.0); EOS % 1.6 % (0-4.5); HEMATOCRIT 40.9 % (32.4-45.2); LYMPH % 9.9 % (8-40); MCH 30.4 pg (25.7-33.7); MCHC 34.2 g/dl (32.0-36.0); MEAN PLT VOLUME 8.3 fl (7.5-11.1); PLATELET COUNT 234 10^3/uL (134-434); RBC 4.59 M/mm3 (3.60-5.2); WHITE BLOOD COUNT 7.4 K/mm3 (4.0-10.0)
[2021-08-25 05:34] LABS: EPI CELLS 27 /uL (0-25.1); HCG,QUALITATIVE URINE Negative; HYALINE CASTS 1 /uL (0-3.1); PH,URINE 8.5 (5.0-8.0); URINE APPEARANCE CLEAR; URINE BACTERIA 5075 /uL (0-1359); URINE BILIRUBIN NEGATIVE (NEGATIVE); URINE COLOR YELLOW; URINE GLUCOSE (UA) NEGATIVE (NEGATIVE); URINE KETONE NEGATIVE (NEGATIVE); URINE LEUK ESTERASE 1+ (NEGATIVE); URINE NITRITE NEGATIVE (NEGATIVE); URINE PROTEIN NEGATIVE (NEGATIVE); URINE RBC 15 /uL (0-23.9); URINE WBC 192 /uL (0-25.8)
[2021-08-25] MEDS ORDERED: CEFTRIAXONE 1 GM in DEXTROSE 5%-WATER - 50 ML IVPB ONE (06:11)
[2021-08-25] MEDS ORDERED: CEFTRIAXONE 1 GM/50 ML BAG ONE (06:15)
[2021-08-25 06:27] VITALS: BP 110/67; PULSE 94; TEMP 98.4
[2021-08-25 06:32] LABS: ALBUMIN 3.5 g/dl (3.4-5.0); BLOOD UREA NITROGEN 8.3 mg/dL (7-18); CALCIUM 8.5 mg/dL (8.5-10.1)
[2021-08-25 06:35] LABS: CREATININE 0.8 mg/dL (0.55-1.3)
[2021-08-25 06:37] LABS: BILIRUBIN,TOTAL 0.7 mg/dL (0.2-1); TOT PROT 7.1 g/dl (6.4-8.2)
[2021-08-26 11:10] LABS: SARS-CoV-2 NAA Not Detected (Not Detected)
== END 2021-08-25 08:12 | disposition home or self-care (01) ==
LOC: JER 04:03
DX: N39.0 Urinary tract infection, site not specified (principal)
CPT/HCPCS: 36415; 71046-TC-FY; 80053; 81003; 84703; 85025; 87086; 87186; 87804; 93005; 93010; 99284-25; C9803-CS; U0003; U0005

== ENCOUNTER 2021-08-25 18:26 | Inpatient (IN) | payer BC ==
[2021-08-25] MEDS ORDERED: ACETAMINOPHEN 1000 MG/100 ML BAG IVPB ONE (19:44)
[2021-08-25] MEDS ORDERED: ONDANSETRON 4 MG/2 ML VIAL IVPUSH ONE (19:44)
[2021-08-25] MEDS ORDERED: SODIUM CHLORIDE 0.9% 500 ML INFUS.BAG IV ONE (19:44)
[2021-08-25] MEDS ORDERED: ONDANSETRON 4 MG/2 ML VIAL ONE (19:56)
[2021-08-25] MEDS ORDERED: ACETAMINOPHEN INJECTION 100 ML IVPB ONE (19:56)
[2021-08-25 20:25] LABS: BASO % 0.2 % (0-2.0); EOS % 0.3 % (0-4.5); HEMATOCRIT 40.2 % (32.4-45.2); HEMOGLOBIN 13.8 GM/dL (10.7-15.3); MCH 30.2 pg (25.7-33.7); MCHC 34.4 g/dl (32.0-36.0); MEAN CELL VOLUME 87.9 fl (80-96); MONO % 6.5 % (3.8-10.2); PLATELET COUNT 238 10^3/uL (134-434); RBC 4.57 M/mm3 (3.60-5.2); RDW 12.7 % (11.6-15.6); WHITE BLOOD COUNT 7.3 K/mm3 (4.0-10.0)
[2021-08-25 20:52] LABS: CALCIUM 8.9 mg/dL (8.5-10.1)
[2021-08-25 20:53] LABS: ALBUMIN 3.5 g/dl (3.4-5.0); BLOOD UREA NITROGEN 8.5 mg/dL (7-18)
[2021-08-25 20:56] LABS: CREATININE 0.7 mg/dL (0.55-1.3)
[2021-08-25 20:57] LABS: BILIRUBIN,TOTAL 0.6 mg/dL (0.2-1)
[2021-08-25 20:58] LABS: TOT PROT 7.4 g/dl (6.4-8.2)
[2021-08-25] MEDS ORDERED: FLUCONAZOLE 150 MG TABLET PO ONE ×2 (21:35→22:27)
[2021-08-25 21:54] LABS: PH,URINE 6.5 (5.0-8.0); URINE APPEARANCE CLEAR; URINE BILIRUBIN NEGATIVE (NEGATIVE); URINE COLOR YELLOW; URINE GLUCOSE (UA) NEGATIVE (NEGATIVE); URINE KETONE 1+ (NEGATIVE); URINE LEUK ESTERASE NEGATIVE (NEGATIVE); URINE NITRITE NEGATIVE (NEGATIVE); URINE PROTEIN NEGATIVE (NEGATIVE); URINE UROBILINOGEN 0.2 mg/dL (0.2-1.0)
[2021-08-25] MEDS ORDERED: CIPROFLOXACIN 200 MG/D5W 100 ML IVPB ONE (21:59)
[2021-08-26] MEDS ORDERED: CIPROFLOXACIN 200 MG/D5W 100 ML IVPB ONE (00:40)
[2021-08-26] MEDS ORDERED: ONDANSETRON 4 MG/2 ML VIAL IVPUSH PRN ×2 (02:58→09:04)
[2021-08-26 04:26] VITALS: BMI 34.4
[2021-08-26] MEDS: DEXTROSE 5%-0.45% SALINE 1,000 ML IV SCH ×2 (06:43→21:02)
[2021-08-26] MEDS ORDERED: ACETAMINOPHEN 1000 MG/100 ML BAG IVPB PRN (06:58)
[2021-08-26 08:25] LABS: BASO % 0.5 % (0-2.0); EOS % 2.1 % (0-4.5); HEMATOCRIT 36.5 % (32.4-45.2); HEMOGLOBIN 12.2 GM/dL (10.7-15.3); LYMPH % 20.5 % (8-40); MCH 29.9 pg (25.7-33.7); MCHC 33.4 g/dl (32.0-36.0); MEAN CELL VOLUME 89.4 fl (80-96); MEAN PLT VOLUME 8.2 fl (7.5-11.1); MONO % 14.2 % (3.8-10.2); NEUT % 62.7 % (42.8-82.8); PLATELET COUNT 221 10^3/uL (134-434); RBC 4.08 M/mm3 (3.60-5.2); RDW 13.2 % (11.6-15.6)
[2021-08-26 08:50] LABS: BLOOD UREA NITROGEN 8.3 mg/dL (7-18); CALCIUM 8.2 mg/dL (8.5-10.1)
[2021-08-26 08:52] LABS: CREATININE 0.7 mg/dL (0.55-1.3)
[2021-08-26] MEDS: FAMOTIDINE 20 MG/50 ML IVPB 20 MG/50 ML MG IVPB SCH ×2 (09:24→21:02)
[2021-08-26] MEDS ORDERED: CEFTRIAXONE 1 GM in DEXTROSE 5%-WATER - 50 ML IVPB SCH (10:00)
[2021-08-26] MEDS ORDERED: cefTRIAXone SODIUM 1 GM VIAL ONE (10:15)
[2021-08-26] MEDS ORDERED: DEXTROSE 5%-WATER - 50 ML IVPB ONE (10:16)
[2021-08-26] MEDS: RAMIPRIL 5 MG CAPSULE PO SCH (10:18)
[2021-08-26] MEDS ORDERED: DEXTROSE 5%-WATER 100 ML IVPB ONE ×2 (12:02→16:52)
[2021-08-26] MEDS ORDERED: PIPERACILLIN/TAZOBACTAM 4.5 GM VIAL IVPB ONE ×2 (12:02→16:52)
[2021-08-26] MEDS: PIPERACILLIN/TAZOB 4.5 GM 4.5 GM in DEXTROSE 5%-WATER 100 ML IVPB SCH ×2 (12:09→17:09)
[2021-08-27] MEDS ORDERED: DEXTROSE 5%-WATER 100 ML IVPB ONE ×3 (00:45→17:06)
[2021-08-27] MEDS ORDERED: PIPERACILLIN/TAZOBACTAM 4.5 GM VIAL IVPB ONE ×3 (00:45→17:06)
[2021-08-27] MEDS: PIPERACILLIN/TAZOB 4.5 GM 4.5 GM in DEXTROSE 5%-WATER 100 ML IVPB SCH ×3 (01:23→17:16)
[2021-08-27 07:22] LABS: BASO % 0.9 % (0-2.0); EOS % 4.7 % (0-4.5); HEMATOCRIT 35.8 % (32.4-45.2); HEMOGLOBIN 12.5 GM/dL (10.7-15.3); LYMPH % 31.2 % (8-40); MCH 30.7 pg (25.7-33.7); MCHC 34.9 g/dl (32.0-36.0); MEAN PLT VOLUME 8.1 fl (7.5-11.1); MONO % 17.3 % (3.8-10.2); NEUT % 45.9 % (42.8-82.8); PLATELET COUNT 232 10^3/uL (134-434); RBC 4.07 M/mm3 (3.60-5.2); RDW 12.7 % (11.6-15.6); WHITE BLOOD COUNT 3.1 K/mm3 (4.0-10.0)
[2021-08-27 07:46] LABS: BLOOD UREA NITROGEN 5.7 mg/dL (7-18); CALCIUM 8.2 mg/dL (8.5-10.1)
[2021-08-27 07:50] LABS: CREATININE 0.8 mg/dL (0.55-1.3)
[2021-08-27] MEDS: FAMOTIDINE 20 MG/50 ML IVPB 20 MG/50 ML MG IVPB SCH ×2 (09:12→22:02)
[2021-08-27] MEDS: RAMIPRIL 5 MG CAPSULE PO SCH (09:13)
[2021-08-27] MEDS: DEXTROSE 5%-0.45% SALINE 1,000 ML IV SCH (13:52)
[2021-08-28] MEDS ORDERED: PIPERACILLIN/TAZOBACTAM 4.5 GM VIAL IVPB ONE (00:16)
[2021-08-28] MEDS ORDERED: DEXTROSE 5%-WATER 100 ML IVPB ONE (00:16)
[2021-08-28] MEDS: DEXTROSE 5%-0.45% SALINE 1,000 ML IV SCH (02:01)
[2021-08-28] MEDS: PIPERACILLIN/TAZOB 4.5 GM 4.5 GM in DEXTROSE 5%-WATER 100 ML IVPB SCH (02:01)
[2021-08-28] MEDS ORDERED: CEFUROXIME AXETIL 500 MG TABLET PO SCH (10:00)
[2021-08-28] MEDS: RAMIPRIL 5 MG CAPSULE PO SCH (10:08)
[2021-08-28] MEDS: FAMOTIDINE 20 MG/50 ML IVPB 20 MG/50 ML MG IVPB SCH (10:08)
[2021-08-28 13:41] VITALS: BP 114/69; PULSE 75; TEMP 98.1
== END 2021-08-28 15:15 | disposition home or self-care (01) | DRG 690 ==
LOC: JER 18:26 → JERBED 08-26 00:52 → J7W 08-26 03:16
PROVIDERS: ADMIT Internal Medicine; ATTEND Internal Medicine
DX: N10 Acute pyelonephritis (principal); B96.20 Unspecified Escherichia coli [E. coli] as the cause of diseases classified elsewhere; E11.9 Type 2 diabetes mellitus without complications; I10 Essential (primary) hypertension; N20.0 Calculus of kidney; D72.819 Decreased white blood cell count, unspecified; K29.70 Gastritis, unspecified, without bleeding; E66.9 Obesity, unspecified; Z68.34 Body mass index [BMI] 34.0-34.9, adult
CPT/HCPCS: 36415; 74177-TC; 76830-TC; 80048; 80053; 81003; 82962; 85025; 87040; 87086; 99285-25; C9803-CS; Q9967; U0003; U0005

== ENCOUNTER 2022-03-20 06:31 | Emergency (ER) | payer BC ==
[2022-03-20 06:44] VITALS: BMI 31.7
[2022-03-20 08:22] LABS: BASO % 0.5 % (0-2.0); EOS % 3.2 % (0-4.5); HEMATOCRIT 42.3 % (32.4-45.2); HEMOGLOBIN 14.6 GM/dL (10.7-15.3); MCH 30.7 pg (25.7-33.7); MCHC 34.6 g/dl (32.0-36.0); MEAN CELL VOLUME 88.7 fl (80-96); MEAN PLT VOLUME 7.6 fl (7.5-11.1); MONO % 11.3 % (3.8-10.2); PLATELET COUNT 288 10^3/uL (134-434); RBC 4.77 M/mm3 (3.60-5.2); RDW 13.1 % (11.6-15.6); WHITE BLOOD COUNT 3.7 K/mm3 (4.0-10.0)
[2022-03-20 08:52] LABS: CALCIUM 9.5 mg/dL (8.5-10.1)
[2022-03-20 08:53] LABS: ALBUMIN 3.7 g/dl (3.4-5.0); BLOOD UREA NITROGEN 10.9 mg/dL (7-18)
[2022-03-20 08:56] LABS: CREATININE 0.8 mg/dL (0.55-1.3)
[2022-03-20 08:58] LABS: BILIRUBIN,TOTAL 0.9 mg/dL (0.2-1); TOT PROT 7.2 g/dl (6.4-8.2)
[2022-03-20 10:07] LABS: INR 1.04 (0.83-1.09)
[2022-03-20 10:10] LABS: ACTIVATED PTT 31.8 SECONDS (25.2-36.5)
[2022-03-20 11:56] VITALS: BP 131/82; PULSE 76; RESP 17; TEMP 98.5
== END 2022-03-20 11:57 | disposition home or self-care (01) ==
LOC: JER 06:31
DX: R07.9 Chest pain, unspecified (principal)
CPT/HCPCS: 36415; 71046-TC-FY; 80053; 84484; 85025; 85610; 85730; 93005; 93010; 99284-25

== ENCOUNTER 2023-05-24 03:54 | Day surgery (SDC) | payer BC ==
[2023-05-19 15:45] VITALS: BMI 30.7
[2023-05-24] MEDS ORDERED: oxyCODONE HCL 5 MG TABLET PO PRN (11:52)
[2023-05-24] MEDS ORDERED: ONDANSETRON 4 MG/2 ML VIAL IVPUSH PRN (11:52)
[2023-05-24] MEDS ORDERED: PROPOFOL 40 ML ONE (11:55)
[2023-05-24] MEDS ORDERED: LACTATED RINGERS SOLUTION 1,000 ML IV SCH (12:00)
[2023-05-24] MEDS ORDERED: NEOSTIGMINE METHYLSULFATE 0.5 MG/1 ML - 10 ML MDV ONE (12:27)
[2023-05-24] MEDS ORDERED: GLYCOPYRROLATE 0.2 MG/1 ML VIAL ONE (12:27)
[2023-05-24] MEDS ORDERED: IBUPROFEN 400 MG TABLET (FP) PO PRN (12:54)
[2023-05-24] MEDS ORDERED: ACETAMINOPHEN 325 MG TABLET (FP) PO PRN (12:54)
[2023-05-24] MEDS ORDERED: PHENYLEPHRINE HCL 10 MG/1 ML SINGLE DOSE VIAL ONE (13:05)
[2023-05-24] MEDS ORDERED: MIDAZOLAM HCL 2 MG/2 ML SINGLE DOSE VIAL ONE (13:05)
[2023-05-24] MEDS ORDERED: SUCCINYLCHOLINE CHLORIDE 200 MG/10 ML SYRINGE ONE (13:06)
[2023-05-24] MEDS ORDERED: DEXAMETHASONE SOD PHOSPHATE 4 MG/1 ML VIAL ONE (13:15)
[2023-05-24] MEDS ORDERED: METOCLOPRAMIDE HCL INJECTION 10 MG/2 ML VIAL ONE (13:15)
[2023-05-24] MEDS ORDERED: ONDANSETRON 4 MG/2 ML VIAL ONE (13:15)
[2023-05-24 17:23] VITALS: BP 106/64; PULSE 85; RESP 18; TEMP 98
== END 2023-05-24 17:40 | disposition home or self-care (01) ==
LOC: JASU-SURG 03:54
PROVIDERS: ATTEND Obstetrics & Gynecology
PROC: 0UB98ZZ Excision of Uterus, Via Natural or Artificial Opening Endoscopic (ICD-10-PCS; principal; 2023-05-24 11:30)
DX: N93.9 Abnormal uterine and vaginal bleeding, unspecified (principal); D25.0 Submucous leiomyoma of uterus; N84.0 Polyp of corpus uteri
CPT/HCPCS: 81025; 86850; 86900; 86901; 88305-TC; 94760; J0131

== ENCOUNTER 2023-11-16 16:57 | Emergency (ER) | payer OTHER ==
[2023-11-16 17:04] VITALS: RESP 18; TEMP 97.8; BMI 30.7
[2023-11-16] MEDS ORDERED: ONDANSETRON 4 MG/2 ML VIAL ONE (17:42)
[2023-11-16] MEDS: ONDANSETRON 4 MG/2 ML VIAL IVPUSH ONE (18:03)
[2023-11-16 18:32] LABS: BASO % 0.5 % (0-2.0); EOS % 0.5 % (0-4.5); HEMATOCRIT 43.4 % (32.4-45.2); HEMOGLOBIN 14.6 GM/dL (10.7-15.3); LYMPH % 20.3 % (8-40); MCH 30.2 pg (25.7-33.7); MCHC 33.7 g/dl (32.0-36.0); MEAN CELL VOLUME 89.7 fl (80-96); MEAN PLT VOLUME 8.5 fl (7.5-11.1); MONO % 5.7 % (3.8-10.2); PLATELET COUNT 278 10^3/uL (134-434); RBC 4.84 M/mm3 (3.60-5.2); RDW 12.7 % (11.6-15.6); WHITE BLOOD COUNT 7.3 K/mm3 (4.0-10.0)
[2023-11-16 18:45] LABS: POTASSIUM 3.9 mmol/L (3.5-5.1)
[2023-11-16 18:47] LABS: CALCIUM 9.8 mg/dL (8.5-10.1)
[2023-11-16 18:48] LABS: BLOOD UREA NITROGEN 6.7 mg/dL (7-18); MAGNESIUM 1.9 mg/dL (1.8-2.4)
[2023-11-16 18:51] LABS: CREATININE 0.9 mg/dL (0.55-1.3)
[2023-11-16 18:53] LABS: BILIRUBIN,TOTAL 0.6 mg/dL (0.2-1); TOT PROT 7.9 g/dl (6.4-8.2)
[2023-11-16] MEDS ORDERED: METOCLOPRAMIDE HCL INJECTION 10 MG/2 ML VIAL ONE (18:56)
[2023-11-16] MEDS: LACTATED RINGERS SOLUTION 1000 ML INFUS.BAG IV ONE (19:01)
[2023-11-16] MEDS: METOCLOPRAMIDE HCL INJECTION 10 MG/2 ML VIAL IVPUSH ONE (19:01)
[2023-11-16] MEDS: SODIUM CHLORIDE 0.9% 500 ML INFUS.BAG IV ONE (19:01)
[2023-11-16 19:36] LABS: PH,URINE >= 9.0 (5.0-8.0); URINE APPEARANCE CLEAR; URINE BILIRUBIN NEGATIVE (NEGATIVE); URINE COLOR YELLOW; URINE GLUCOSE (UA) NEGATIVE (NEGATIVE); URINE KETONE 2+ (NEGATIVE); URINE LEUK ESTERASE NEGATIVE (NEGATIVE); URINE NITRITE NEGATIVE (NEGATIVE); URINE PROTEIN TRACE (NEGATIVE); URINE UROBILINOGEN 0.2 mg/dL (0.2-1.0)
[2023-11-16 20:00] VITALS: BP 120/76; PULSE 91
== END 2023-11-16 20:07 | disposition home or self-care (01) ==
LOC: JER 16:57
PROC: 3E033GC Introduction of Other Therapeutic Substance into Peripheral Vein, Percutaneous Approach (ICD-10-PCS; principal; 2023-11-16)
PROC: 3E033GC Introduction of Other Therapeutic Substance into Peripheral Vein, Percutaneous Approach (ICD-10-PCS; 2023-11-16)
DX: R11.2 Nausea with vomiting, unspecified (principal); R68.83 Chills (without fever); R10.9 Unspecified abdominal pain; T38.3X5A Adverse effect of insulin and oral hypoglycemic [antidiabetic] drugs, initial encounter
CPT/HCPCS: 36415; 80053; 81003; 82962; 83690; 83735; 84100; 85025; 87086; 87186; 99284-25

== ENCOUNTER 2023-12-07 03:57 | Day surgery (SDC) | payer OTHER ==
[2023-12-06 08:38] VITALS: BMI 30.9
[2023-12-07 06:42] LABS: INR 0.94 (0.83-1.09); PROTHROMBIN TIME (PATIENT) 10.8 SEC (9.7-13.0)
[2023-12-07 06:44] LABS: ACTIVATED PTT 31.1 SECONDS (25.2-36.5)
[2023-12-07] MEDS ORDERED: MIDAZOLAM HCL 2 MG/2 ML SINGLE DOSE VIAL ONE (07:21)
[2023-12-07] MEDS: ceFAZolin SODIUM 1 GM VIAL IVPB ONE (07:57)
[2023-12-07 08:38] VITALS: RESP 18; TEMP 97.8
[2023-12-07] MEDS: ONDANSETRON 4 MG/2 ML VIAL IVPUSH PRN (10:00)
[2023-12-07] MEDS: ONDANSETRON 4 MG/2 ML VIAL IVPB ONE (10:00)
[2023-12-07 15:29] VITALS: BP 122/67; PULSE 77
== END 2023-12-07 11:20 | disposition home or self-care (01) ==
LOC: JASU-SURG 03:57
PROVIDERS: ATTEND Urology
PROC: 0TF3XZZ Fragmentation in Right Kidney Pelvis, External Approach (ICD-10-PCS; principal; 2023-12-07 07:30)
DX: N20.0 Calculus of kidney (principal)
CPT/HCPCS: 36415; 81025; 82962; 85610; 85730